=== PATIENT | female | born 1955 | race Caucasian/White ===

== ENCOUNTER 2020-04-26 21:18 | Day surgery (SDCO) | payer OTHER ==
[~2020-04-26 21:18] MED LIST: K-DUR20 MEQ PO; MACROBID100 MG PO; ZOFRAN8 MG PO
[2020-04-26 22:31] LABS: BASOPHIL 0.8 % (0-2); EOSINOPHIL 2.1 % (0-5); HCT 36.4 % (37.0-47.0); MCV 106.1 fL (78.0-100.0); MONOCYTE 8.1 % (0-12); MPV 9.4 fL (6.0-9.5); NEUTROPHIL 45.8 % (41-80); NRBC 0; PLT 282 K/uL (150-400); RBC 3.43 M/uL (4.20-5.40); RDW 15.3 % (11.5-14.0); WBC 5.2 K/uL (4.0-10.5)
[2020-04-26 22:44] LABS: ALBUMIN 3.1 g/dL (3.4-5.0); BILIRUBIN - TOTAL 0.1 mg/dL (0.2-1.0); BUN/CREAT RATIO (CALC) 14.5 RATIO; CREATININE 0.76 mg/dL (0.51-0.95); GLOBULIN (CALCULATION) 3.5 g/dL; POTASSIUM 3.5 mmol/L (3.5-5.1); TOTAL PROTEIN 6.6 g/dL (6.4-8.2)
[2020-04-26 22:49] LABS: LACTIC ACID 1.1 mmol/L (0.4-1.9)
[2020-04-26 23:33] LABS: BILIRUBIN NEGATIVE (NEGATIVE); BLOOD TRACE-INTACT Ery/uL (NEGATIVE); CLARITY HAZY (CLEAR); COLOR YELLOW (YELLOW); GLUCOSE (U) NORMAL (NORMAL); LEUKOCYTES NEGATIVE Leu/uL (NEGATIVE); NITRITE POSITIVE (NEGATIVE); PROTEIN TRACE (LOW) mg/dL (NEGATIVE); SPECIFIC GRAVITY 1.025 (1.001-1.030); UROBILINOGEN 0.2 mg/dL (0.2-1.0)
[2020-04-26 23:37] LABS: BACTERIA 3+
[2020-04-27] MEDS ORDERED: LIPITOR40 MG PO (04:44)
[2020-04-27] MEDS ORDERED: PLAVIX75 MG PO (04:44)
[2020-04-27] MEDS ORDERED: LOPRESSOR50 MG PO (04:44)
[2020-04-27] MEDS ORDERED: NORVASC5 MG PO (04:45)
[2020-04-27] MEDS ORDERED: ZOLOFT50 MG PO (04:45)
[2020-04-27] MEDS ORDERED: DESYREL50 MG PO (04:46)
--- NOTE | 2020-04-27 14:53 | NUR ---
MET WITH PT. TO DISCUSS D/C FOR FRIDAY. 04/28/20. SHE STATED THAT SHE IS WILLING TO HAVE HH FOR PT/OT AND NURSING ASSESSMENT, SHE IS ALSO WILLING TO HAVE A BEHAVIORAL HEALTH NURSE TO DEAL WITH THE OF HER SPOUSE 6 MONTHS AGO. PT. STATED THAT SHE WANTS [facility]. AFFILIATION EXPLAINED. SHE WILL NEED A ROLLING WALKER AND 05/29. [facility] WILL DELIVER TO THE HOSPITAL. ADVISED DR. GORDON AND KIMBERLY HER NURSE. ALSO, ADVISED DR. GORDON SHE WILL NEED A WALK TEST FOR POSSIBLE OXYGEN. HE STATED THAT HE WOULD ORDER THE WALK TEST.
[2020-04-28 06:31] LABS: BASOPHIL 0.4 % (0-2); EOSINOPHIL 0.8 % (0-5); HCT 31.1 % (37.0-47.0); HGB 10.6 g/dl (12.5-16.0); LYMPHOCYTE 26.2 % (15-48); MCH 35.2 pg (25.0-31.0); MCHC 34.1 g/dL (32.0-36.0); MCV 103.3 fL (78.0-100.0); MPV 9.3 fL (6.0-9.5); NEUTROPHIL 64.4 % (41-80); NRBC 0; PLT 243 K/uL (150-400); RBC 3.01 M/uL (4.20-5.40); RDW 14.7 % (11.5-14.0); WBC 4.8 K/uL (4.0-10.5)
[2020-04-28 07:21] LABS: BUN/CREAT RATIO (CALC) 10.9 RATIO; CREATININE 0.64 mg/dL (0.51-0.95); POTASSIUM 3.1 mmol/L (3.5-5.1)
[2020-04-28] MEDS ORDERED: FOLIC ACID1 MG PO (08:30)
[2020-04-28] MEDS ORDERED: BACTRIM DS TAB1 EACH PO (08:30)
[2020-04-28] MEDS ORDERED: NORCO 5-325 TA1 EACH PO (08:30)
[2020-04-28] MEDS ORDERED: VITAMIN B-121000 MC1 PO (08:30)
[2020-04-28] MEDS ORDERED: MIRALAX 238GM238 GM PO (10:10)
[2020-04-28] MEDS ORDERED: PERCOCET 5-3251 EACH PO (10:10)
== END 2020-04-28 13:26 | disposition home health service (06) ==
LOC: FER 21:18 → FMS 04-27 02:27
PROVIDERS: Emergency Medicine Emergency Medical Services; Hospitalist; ADMIT Internal Medicine
DX: S32.10XA Unspecified fracture of sacrum, initial encounter for closed fracture (principal); N39.0 Urinary tract infection, site not specified; F32.9 Major depressive disorder, single episode, unspecified; I10 Essential (primary) hypertension; M25.561 Pain in right knee; M25.571 Pain in right ankle and joints of right foot; I69.351 Hemiplegia and hemiparesis following cerebral infarction affecting right dominant side; I69.391 Dysphagia following cerebral infarction; R13.10 Dysphagia, unspecified; I25.10 Atherosclerotic heart disease of native coronary artery without angina pectoris; I25.2 Old myocardial infarction; E78.5 Hyperlipidemia, unspecified; J44.9 Chronic obstructive pulmonary disease, unspecified; Z87.891 Personal history of nicotine dependence; Z79.02 Long term (current) use of antithrombotics/antiplatelets; Z79.899 Other long term (current) drug therapy; Z88.5 Allergy status to narcotic agent; Z88.8 Allergy status to other drugs, medicaments and biological substances; Z20.822 Contact with and (suspected) exposure to COVID-19; W19.XXXA Unspecified fall, initial encounter; Y92.009 Unspecified place in unspecified non-institutional (private) residence as the place of occurrence of the external cause
CPT/HCPCS: 36415; 36600; 70450; 71250; 72131; 73552; 73560; 73590; 73610; 80048; 80053; 81001; 82150; 82550; 82803; 83605; 83690; 84484; 85025; 87076; 87088; 87186; 93005; 94010; 97110; 97162; 97166; 97530-GP; 97535; G0378; J0696; J1650; J1885; J2270; J2405; J7030; U0002